=== PATIENT | male | born 1995 | race Caucasian/White ===

== ENCOUNTER 2017-01-19 12:21 | Emergency (ER) | payer SELFPAY ==
[2017-01-19 12:28] VITALS: BP 111/75; BMI 22.1
--- NOTE | 2017-01-19 13:15 | DR.GENAD ---
HPI - PCP Primary Care Physician: CYNTHIA - Complaint/Symptoms Chief Complaint Doctors Comments: Patient states that he has had stomach for one week, denies fever or vomiting except one week ago fever. BM x 1 in one week. No history of trauma Chief Complaint:: patient stated he has been having epigastric pain, sour stomach for 1 weak. today his kidneys have been hurting. - Source History Provided: Patient - Mode of Arrival Mode of Arrival: Ambulatory - Timing Onset of Chief Complaint: 01/12/17 PMH - PMH Past Medical History: No Past Surgical History: Yes Surgical History: Ortho Surgery - Family History History of Family Medical Conditions: No - Social History Does patient currently use any type of tobacco product: Yes Have you used tobacco products in the last 12 months: Yes Type of Tobacco Use: Cigarettes How many years tobacco product used: 10 Does any household member use tobacco: Yes Alcohol Use: Rarely Do you use any recreational Drugs:: Yes (thc) Lives With: Family Lives Where: Home - infectious screening In the last 2 months have you had wt loss of >10#?: NO Have you had fever, night sweats or hemotysis?: No Have you traveled outside the country in the last 6 months?: No Isolation: Standard ROS - Review of Systems Eyes: No Symptoms Reported ENTM: No Symptoms Reported Respiratoy: No Symptoms Reported Cardiovascular: No Symptoms Reported Gastrointestinal/Abdominal: No Symptoms Reported Genitourinary: No Symptoms Reported Neurological: No Symptoms Reported, Headache Integumentary: No Symptoms Reported Hematologic/Lymphatic: No Symptoms Reported Endocrine: No Symptoms Reported Psychiatric: No Symptoms Reported All Other Systems: Reviewed and Negative PE - Vital Signs Vitals: Temperature 97.9 F Pulse Rate 72 Respiratory Rate 16 Blood Pressure 111/75 O2 Sat by Pulse Oximetry 100 - General General Appearance: Alert, In No Apparent Distress - Head Head Exam: Normal Inspection, Atraumatic - Eyes Eye exam: Normal Appearance, PERRL, EOMI - ENT ENT Exam: Normal Exam, Normal Oropharynx External Ear Exam: Normal External Inspection TM/Canal Exam: Bilateral Normal Nose Exam: Normal Nose Exam Mouth Exam: Normal Inspection Throat Exam: Normal Inspection - Neck Neck Exam: Normal Inspection - Chest Chest Inspection: Normal Inspection - Respiratory Respiratory Exam: Normal Lung Sounds Bilat Respiratory Exam: Bilateral Clear to Auscultation - Cardiovascular Cardiovascular Exam: Regular Rate, Normal Rhythm, Bradycardia - Abdominal Exam Abdominal Exam: Normal Inspection, Normal Bowel Sounds Abdominal Tenderness: negative: RUQ, RLQ, LUQ, LLQ, Epigastrium, Suprapubic, Diffuse, Mild, Moderate, Severe, Other - Extremities Extremities Exam: Normal Inspection, Full ROM - Back Back Exam: Normal Inspection, Full ROM - Neurologic Neurological Exam: Alert, Oriented X3, CN II-XII Intact - Psychiatric Psychiatric Exam: Normal Affect - Skin Skin Exam: Warm, Dry, Intact ROR - Labs Reviewed Result Diagrams: 01/19/17 13:40 Laboratory: WBC 8.6 X10^3/uL (3.6-10.0) 01/19/17 13:40 RBC 4.94 X10^6/uL (4.7-6.0) 01/19/17 13:40 Hgb 15.9 g/dL (13.5-18.0) 01/19/17 13:40 Hct 45.4 % (42.0-54.0) 01/19/17 13:40 MCV 91.9 fL (80.0-100.0) 01/19/17 13:40 MCH 32.1 pg (27.0-34.0) 01/19/17 13:40 MCHC 34.9 g/dL (33.0-35.0) 01/19/17 13:40 RDW 12.7 % (11.6-16.5) 01/19/17 13:40 Plt Count 181 X10^3/uL (150.0-450.0) 01/19/17 13:40 MPV 9.4 fL (7.4-11.0) 01/19/17 13:40 Neut % 44.7 % (42.0-75.0) 01/19/17 13:40 Lymph % 33.1 % (21.0-51.0) 01/19/17 13:40 Schleicher % 5.7 % (0.0-13.0) 01/19/17 13:40 Eos % 15.2 % (0.9-2.9) H 01/19/17 13:40 Baso % 1.3 % (0.2-1.0) H 01/19/17 13:40 Neut # 3.9 x10^3/uL (2.2-4.8) 01/19/17 13:40 Lymph # 2.9 X10^3/uL (1.3-2.9) 01/19/17 13:40 Schleicher # 0.5 x10^3/uL (0.3-0.8) 01/19/17 13:40 Eos # 1.3 x10^3/uL (0.0-0.2) H 01/19/17 13:40 Baso # 0.1 X10^3/uL (0.0-0.1) 01/19/17 13:40 Absolute Nucleated RBC 0.0 /100WBC 01/19/17 13:40 C-Reactive Protein 0.60 mg/L (0-3.0) 01/19/17 13:40 Specimen Type Random urine 01/19/17 13:26 Urine Color Helen (YELLOW) 01/19/17 13:26 Urine Appearance Clear (CLEAR) 01/19/17 13:26 Urine pH 6.0 (5.0 - 8.0) 01/19/17 13:26 Ur Specific Cushman 1.025 (1.000-1.030) 01/19/17 13:26 Urine Protein Negative (NEGATIVE) 01/19/17 13:26 Urine Glucose (UA) Negative (NEGATIVE) 01/19/17 13:26 Urine Ketones Negative (NEGATIVE) 01/19/17 13:26 Urine Occult Blood Negative (NEGATIVE) 01/19/17 13:26 Urine Nitrite Negative (NEGATIVE) 01/19/17 13:26 Urine Bilirubin Negative (NEGATIVE) 01/19/17 13:26 Urine Urobilinogen Normal (NORMAL) 01/19/17 13:26 Ur Leukocyte Esterase Negative (NEGATIVE) 01/19/17 13:26 Urine RBC Negative /HPF (NEGATIVE) 01/19/17 13:26 Urine WBC Rare /HPF (NEGATIVE) 01/19/17 13:26 Ur Squamous Epith Cells Rare /HPF (NEGATIVE) 01/19/17 13:26 Urine Bacteria Negative /HPF (NEGATIVE) 01/19/17 13:26 Ur Culture Indicated? No/not indicated 01/19/17 13:26 - XRAY XRAY Interpreted by: Radiologist (No acute pathology), Self (Chest clear, thoracic scoliosis mild concavity to left) - Diagnosis Discharge Problem: Scoliosis Qualifiers: Scoliosis type: idiopathic Idiopathic scoliosis type: other Spinal region: thoracic Qualified Code(s): M41.24 - Other idiopathic scoliosis, thoracic region - Discharge Plan Condition: Stable - Follow ups/Referrals Follow ups/Referrals: VEGA MARIE [Primary Care Provider] - 3 days - Instructions
[2017-01-19 13:52] LABS: BASOPHILS # (AUTO) 0.1 X10^3/uL (0.0-0.1); HEMOGLOBIN 15.9 g/dL (13.5-18.0); LYMPHOCYTES # (AUTO) 2.9 X10^3/uL (1.3-2.9); MONOCYTES # (AUTO) 0.5 x10^3/uL (0.3-0.8); NEUTROPHILS # (AUTO) 3.9 x10^3/uL (2.2-4.8)
[2017-01-19 13:59] LABS: BILIRUBIN,URINE NEGATIVE (NEGATIVE); BLOOD/HEMOGLOBIN,URINE NEGATIVE (NEGATIVE); GLUCOSE, URINE NEGATIVE (NEGATIVE); KETONES,URINE NEGATIVE (NEGATIVE); LEUKOCYTE ESTERASE ,URINE NEGATIVE (NEGATIVE); NITRITES,URINE NEGATIVE (NEGATIVE); PROTEIN,URINE NEGATIVE (NEGATIVE); UROBILINOGEN,URINE NORMAL (NORMAL)
--- NOTE | 2017-01-19 14:01 | RAD ---
HISTORY: Abdominal pain Study: Acute abdominal series Comparison: None Findings: The trachea is midline. The cardiac silhouette is unremarkable. The lungs are clear without focal mass or consolidation. There is no effusion or pneumothorax. The bony thorax is grossly unremarkab le. Flat plate and upright evaluation of the abdomen demonstrates a normal bowel gas pattern without pne umoperitoneum. No pathological soft tissue mass or calcification can be observed. The bony structu res are grossly intact. IMPRESSION: 1. No acute cardiopulmonary disease. 2. No evidence for acute abdominal pathology identified. Reported By:
[2017-01-19 14:08] LABS: BASOPHILS % (AUTO) 1.3 % (0.2-1.0); EOSINOPHILS # (AUTO) 1.3 x10^3/uL (0.0-0.2); EOSINOPHILS % (AUTO) 15.2 % (0.9-2.9); HEMATOCRIT 45.4 % (42.0-54.0); LYMPHOCYTES % (AUTO) 33.1 % (21.0-51.0); MEAN CORPUSCULAR HEMOGLOBIN 32.1 pg (27.0-34.0); MEAN CORPUSCULAR HGB CONC 34.9 g/dL (33.0-35.0); MEAN CORPUSCULAR VOLUME 91.9 fL (80.0-100.0); MEAN PLATELET VOLUME 9.4 fL (7.4-11.0); MONOCYTES % (AUTO) 5.7 % (0.0-13.0); NEUTROPHILS % (AUTO) 44.7 % (42.0-75.0); PLATELET COUNT 181 X10^3/uL (150.0-450.0); RED BLOOD COUNT 4.94 X10^6/uL (4.7-6.0); RED CELL DISTRIBUTION WIDTH 12.7 % (11.6-16.5); WHITE BLOOD COUNT 8.6 X10^3/uL (3.6-10.0)
[2017-01-19 14:15] LABS: APPEARANCE,URINE CLEAR (CLEAR); COLOR,URINE AMBER (YELLOW)
[2017-01-19 14:16] LABS: BACTERIA,URINE NEGATIVE /HPF (NEGATIVE); RBC,URINE NEGATIVE /HPF (NEGATIVE); SQUAMOUS EPITHELIAL CELL,UR RARE /HPF (NEGATIVE)
== END 2017-01-19 14:44 | disposition home or self-care (01) ==
LOC: ER 12:35
DX: M41.24 Other idiopathic scoliosis, thoracic region (principal)
CPT/HCPCS: 36415; 74022; 81001; 85025; 86140; 99282; 99283